=== PATIENT | female | born 1940 | race African-American/Black ===

== ENCOUNTER 2020-03-24 06:32 | Day surgery (SDC) | payer OTHER ==
[2020-03-23 09:37] VITALS: BMI 27.1
[2020-03-24] MEDS: CIPROFLOXACIN HCL 0.3% OPHTH 2.5ML BOTTLE ONE ×2 (07:45→07:50)
[2020-03-24] MEDS: PHENYLEPHRINE 2.5% OPHTH SOLN 15 ML BOTTLE OP SCH ×3 (07:45→07:55)
[2020-03-24] MEDS: KETOROLAC TROMETHAMINE 0.5% EYE DROP 1 DROP DROPS ONE ×2 (07:45→07:50)
[2020-03-24] MEDS: TROPICAMIDE 1% OPHTH SOLN 15 ML BOTTLE ONE ×2 (07:45→07:50)
[2020-03-24] MEDS ORDERED: TOBRAMYCIN/DEXAMETHASONE OPHTH. OINTMENT 1 TUBE ONE (08:14)
[2020-03-24] MEDS ORDERED: EPINEPHrine/PF 1 MG/1 ML (1:1,000) AMPULE ONE (08:15)
[2020-03-24] MEDS ORDERED: TETRACAINE 0.5% OPHTH SOLN 2 ML BOTTLE ONE (08:15)
[2020-03-24] MEDS ORDERED: LIDOCAINE HCL/PF 1% SDV 5ML VIAL ONE (08:15)
[2020-03-24] MEDS ORDERED: ACETAMINOPHEN 325 MG TABLET (FP) PO PRN (08:16)
[2020-03-24] MEDS ORDERED: TROPICAMIDE 1% OPHTH SOLN 15 ML BOTTLE OP SCH (08:30)
[2020-03-24] MEDS ORDERED: KETOROLAC TROMETHAMINE 0.5% EYE DROP 1 DROP DROPS OP SCH (08:30)
[2020-03-24] MEDS ORDERED: CIPROFLOXACIN HCL 0.3% OPHTH 2.5ML BOTTLE OP SCH (08:30)
[2020-03-24] MEDS ORDERED: PROPOFOL 20 ML ONE ×2 (09:03)
[2020-03-24] MEDS ORDERED: MIDAZOLAM HCL 2 MG/2 ML SINGLE DOSE VIAL ONE (09:03)
[2020-03-24] MEDS ORDERED: SUCCINYLCHOLINE CHLORIDE 200 MG/10 ML SYRINGE ONE (09:03)
[2020-03-24 11:00] VITALS: BP 125/68; PULSE 87; TEMP 97.7
== END 2020-03-24 11:01 | disposition home or self-care (01) ==
LOC: JASU-SURG 06:32
PROVIDERS: ATTEND Ophthalmology
PROC: 08RJ3JZ Replacement of Right Lens with Synthetic Substitute, Percutaneous Approach (ICD-10-PCS; principal; 2020-03-24 09:00)
DX: H25.11 Age-related nuclear cataract, right eye (principal)